=== PATIENT | female | born 1980 | race Caucasian/White ===

== ENCOUNTER 2020-12-20 13:58 | Emergency (ER) | payer OTHER, SELFPAY ==
[2020-12-20 14:03] VITALS: BP 181/85; PULSE 87; RESP 20; TEMP 36.8; O2SAT 99; BMI 39.9
--- NOTE | 2020-12-20 14:10 | DI.RAD.S_ITS ---
PROCEDURE: XR CHEST 1V INDICATIONS: chest pain TECHNIQUE: One view of the chest was acquired. COMPARISON: None. FINDINGS: Surgical changes and devices: None. Lungs and pleura: Lungs are clear. No pleural effusions or pneumothorax. Mediastinum: Mediastinal contours appear normal. Heart size is normal. Bones and chest wall: No suspicious bony lesions. Overlying soft tissues appear unremarkable. IMPRESSION: No acute cardiopulmonary disease. Dictated by: Nata Hirsch M.D. on 12/20/2020 at 15:16 Approved by: Nata Hirsch M.D. on 12/20/2020 at 15:17
[2020-12-20 14:51] VITALS: PULSE 72; RESP 12; O2SAT 100
[2020-12-20 14:52] LABS: Add Manual Diff / Slide Review NO; Basophils Absolute Auto 100 /uL (0-100); Basophils Percent Auto 0.6 % (0-2); Eosinophils Absolute Auto 200 /uL (0-450); Eosinophils Percent Auto 2.7 % (2-4); Hematocrit 38.3 % (36-46); Lymphocytes Absolute Auto 2200 /uL (1100-4500); Lymphocytes Percent Auto 24.9 % (25-40); Mean Corpuscular HGB Conc 33.9 % (30-36); Mean Corpuscular Hemoglobin 29.3 PG (26-34); Mean Corpuscular Volume 86.3 fL (80-100); Monocytes Absolute Auto 500 /uL (0-900); Monocytes Percent Auto 6.3 % (3-14); Neutrophils Absolute Auto 5700 /uL (1500-7000); Neutrophils Percent Auto 65.5 % (50-75); Platelet Count 279 X10^3/uL (150-400); Red Blood Cell Count 4.44 X10^6/uL (4.0-5.2); Red Cell Distribution Width 13.2 % (11.6-14.8); White Blood Cell Count 8.7 X10^3/uL (4.5-11.0)
[2020-12-20 15:00] VITALS: BP 172/88; PULSE 83; RESP 19; O2SAT 100
--- NOTE | 2020-12-20 15:03 | ED.CHESTPAIN ---
HPI - Chest Pain General Chief Complaint: Chest Pain Stated Complaint: Chest pain Time Seen by Provider: 12/20/20 14:39 Source: patient Mode of arrival: Ambulatory Limitations: no limitations History of Present Illness HPI narrative: Patient is a 40-year-old female. Is here for evaluation of chest discomfort. She states that approximately 6 days ago she had an episode of sharp discomfort on the left side of her chest. She states that it lasted for seconds. Has not returned since then. She has never had any symptoms like this in the past. No fevers. Was not associated with anything else. She came to the emergency department today because she just in feel right. She thinks that it potentially could have been reflux disease or potentially even anxiety. She has had quite a bit of stress and anxiety in her life over the past couple days. Related Data Allergies Allergy/AdvReac Type Severity Reaction Status Date / Time No Known Drug Allergies Allergy Verified 12/20/20 14:07 Review of Systems Constitutional Constitutional: Reports system reviewed and no additional complaints, except as documented Eyes Eyes: Reports system reviewed and no additional complaints, except as documented ENT Ears, Nose, Mouth, and Throat: Reports system reviewed and no additional complaints, except as documented Cardiovascular Cardiovascular: Reports as per HPI and Reports system reviewed and no additional complaints, except as documented Respiratory Respiratory: Reports as per HPI and Reports system reviewed and no additional complaints, except as documented Gastrointestinal Gastrointestinal: Reports as per HPI and Reports system reviewed and no additional complaints, except as documented Genitourinary Genitourinary: Reports system reviewed and no additional complaints, except as documented Musculoskeletal Musculoskeletal: Reports system reviewed and no additional complaints, except as documented Integumentary/Breasts Skin/Breast: Reports system reviewed and no additional complaints, except as documented Neurologic Neurologic: Reports system reviewed and no additional complaints, except as documented Hematologic/Lymphatic On Anticoagulants: No Patient History Medical History Patient denies medical problems Social History Smoking Status: Never smoker Smoking Status: Never smoker alcohol intake frequency: holidays/special occasions only Substance Use Type: does not use Exam Initial Vital Signs Initial Vital Signs: Vital Signs Temperature 98.3 F 12/20/20 14:03 Pulse Rate 87 12/20/20 14:03 Respiratory Rate 20 12/20/20 14:03 Blood Pressure 181/85 H 12/20/20 14:03 Pulse Oximetry 99 12/20/20 14:03 Const General: cooperative, healthy appearing, comfortable, well developed and well groomed [facility] Head: normal to inspection and normocephalic Eyes General: appearance normal, both eyes and all related structures Neck Neck: normal visual inspection Chest Chest: normal inspection of the chest Resp Effort & Inspection: normal respiratory effort Auscultation: clear to auscultation bilaterally Cardio Rate: regular rate Rhythm: regular rhythm GI Inspection: non-distended Palpation: soft and No tender Back/Spine/Pelvis Back: normal to inspection Skin Lesions: no lesions Rashes: no rashes Neuro General: patient alert, patient awake, patient oriented x3 and moves all extremities Extrem General: normal to inspection and capillary refill normal Psych Appearance: grossly normal and well kempt Course Orders Ordered: ED Orders 12/20/20 14:10 XR chest 1V Stat 12/20/20 14:23 EKG-12 Lead Stat 12/20/20 14:25 Complete Blood Count AUTO DIFF Stat Comprehensive Metabolic Panel Stat Lipase Stat Troponin & CK Cardiac Panel Stat Vital Signs Vital signs: Vital Signs - 8 hr 12/20/20 14:03 12/20/20 14:51 12/20/20 15:00 Temperature 98.3 F Pulse Rate 87 72 83 Respiratory Rate 20 12 19 Blood Pressure 181/85 H 172/88 H Pulse Oximetry 99 100 100 MDM - Chest Pain Lab Data Attestation: I reviewed the patient's lab results. Result diagrams: 12/20/20 14:25 12/20/20 14:25 Labs: Lab Results 12/20/20 12/20/20 Range/Units 14:25 14:25 WBC 8.7 (4.5-11.0) X10^3/uL RBC 4.44 (4.0-5.2) X10^6/uL Hgb 13.0 (12.0-16.0) g/dL Hct 38.3 (36-46) % MCV 86.3 (80-100) fL MCH 29.3 (26-34) PG MCHC 33.9 (30-36) % RDW 13.2 (11.6-14.8) % Plt Count 279 (150-400) X10^3/uL Neut % (Auto) 65.5 (50-75) % Lymph % (Auto) 24.9 L (25-40) % Terrell % (Auto) 6.3 (3-14) % Eos % (Auto) 2.7 (2-4) % Baso % (Auto) 0.6 (0-2) % Neut # (Auto) 5700 (7822-4164) /uL Lymph # (Auto) 2200 (3112-9937) /uL Terrell # (Auto) 500 (0-900) /uL Eos # (Auto) 200 (0-450) /uL Baso # (Auto) 100 (0-100) /uL Sodium 138 (137-145) mmol/L Potassium 4.1 (3.4-5.1) mmol/L Chloride 103 (98-107) mmol/L Carbon Dioxide 28 (22-32) mmol/L BUN 17 (7-17) mg/dL Creatinine 0.83 (0.52-1.04) mg/dL Estimated GFR > 60.0 (>60) mL/min BUN/Creatinine Ratio 20.5 (6-22) Glucose 93 (70-100) mg/dL Calcium 9.2 (8.4-10.2) mg/dL Total Bilirubin 0.5 (0.2-1.3) mg/dL AST 23 (14-36) IU/L ALT 15 (<35) IU/L Alkaline Phosphatase 78 (38-126) U/L Total Creatine Kinase 53 (30-135) U/L CK-MB (CK-2) TNP CK-MB (CK-2) Rel Index TNP Troponin I < 0.012 (0.01-0.034) ng/mL Total Protein 7.3 (6.3-8.2) g/dL Albumin 4.3 (3.5-5.0) g/dL Globulin 3.0 (1.7-4.1) g/dL Albumin/Globulin Ratio 1.4 (1.0-2.8) Lipase 60 (23-300) U/L Imaging Data Chest x-ray: Radiologist's Impression: [address] [id number] XRay Report Signed Patient: Jinny Olivares MR#: [id number] : 1980 Acct:[id number] Age/Sex: 40 / F Date of Service: 12/20/20 Loc: ED Accession Number: [id number] ?? Procedure: XR chest 1V Ordering Provider: Reyes Hanson D.O. PROCEDURE:? XR CHEST 1V ? INDICATIONS:? chest pain ? TECHNIQUE:? One view of the chest was acquired.? ? COMPARISON:? None. ? FINDINGS:? ? Surgical changes and devices:? None.? ? Lungs and pleura:? Lungs are clear.? No pleural effusions or pneumothorax.? ? Mediastinum:? Mediastinal contours appear normal.? Heart size is normal.? ? Bones and chest wall:? No suspicious bony lesions.? Overlying soft tissues appear unremarkable.? ? IMPRESSION:? No acute cardiopulmonary disease.? ? ? Dictated by: Nata Hirsch M.D. on 12/20/2020 at 15:16 ? ? Approved by: Nata Hirsch M.D. on 12/20/2020 at 15:17 ECG Data Attestation: I personally reviewed and interpreted this ECG as follows: Prior ECG tracings: not available for review Interpretation: Sinus rhythm Ventricular rate 80 Normal axis Normal QRS Normal QTC No ST T wave changes MDM Narrative Medical decision making narrative: Patient has had symptoms for the past couple days. Her chest x-ray EKG and labs are all unremarkable. Low suspicion for ACS. Low suspicion for PE. Low suspicion for pneumonia. No indication for antibiotics. I feel that we can hold on further workup for now. We did discuss her elevated blood pressure and taking her blood pressure at home. She is given return precautions and follow-up instructions. She expressed understanding and agreement. Discharge Plan Departure Patient Disposition: Home Clinical Impression: Atypical chest pain, Hypertension Instructions: Essential Hypertension, DI for Atypical Chest Pain Activity Restrictions/Additional Instructions: I do recommend that you take your blood pressure at home like we discussed. Contact your primary doctor for a follow-up. Return to the emergency department for any new or worsening symptoms
[2020-12-20 15:10] LABS: Alanine Aminotransferase 15 IU/L (<35); Albumin 4.3 g/dL (3.5-5.0); Albumin Globulin Ratio 1.4 (1.0-2.8); Alkaline Phosphatase 78 U/L (38-126); Aspartate Aminotransferase 23 IU/L (14-36); BUN Creatinine Ratio 20.5 (6-22); Bilirubin Total 0.5 mg/dL (0.2-1.3); Blood Urea Nitrogen 17 mg/dL (7-17); Calcium 9.2 mg/dL (8.4-10.2); Carbon Dioxide 28 mmol/L (22-32); Chloride 103 mmol/L (98-107); Creatine Kinase 53 U/L (30-135); Estimated Glomerular Filt Rate > 60.0 mL/min (>60); Glucose 93 mg/dL (70-100); HEMOLYSIS < 15 (0-50); Lipase 60 U/L (23-300); Potassium 4.1 mmol/L (3.4-5.1); Sodium 138 mmol/L (137-145); Total Protein 7.3 g/dL (6.3-8.2)
[2020-12-20 15:20] LABS: Troponin I < 0.012 ng/mL (0.01-0.034)
[2020-12-20 15:30] VITALS: BP 158/82; PULSE 70; RESP 14; O2SAT 100
== END 2020-12-20 15:46 | disposition home or self-care (01) ==
PROVIDERS: Emergency Provider Emergency Medicine
DX: R07.89 Other chest pain (principal); I10 Essential (primary) hypertension
CPT/HCPCS: 36415; 71045; 80053; 82550; 83690; 84484; 85025; 93005; 99283; 99284